=== PATIENT | male | born 1960 | race Caucasian/White ===

== ENCOUNTER 2025-01-18 09:44 | Day surgery (SDC) | payer OTHER ==
[2025-01-15 14:24] LABS: Absolute Basophils 0.1 K/uL (0-0.5); Absolute Eosinophils 0.9 K/uL (0-0.5); Absolute Lymphocytes (CBC) 1.8 K/uL (0.7-4.9); Absolute Monocytes 1.4 K/uL (0.1-1.3); Absolute Neutrophil 7.7 K/uL (1.8-8.0); Eosinophils % 7.3 % (0-4.4); Hematocrit 30.6 % (39.6-49.0); Hemoglobin 10.2 g/dL (13.6-17.9); MCH 26.1 pg (27.0-35.0); MCHC 33.5 g/dL (32.0-36.0); MCV 77.9 fL (80-100); Monocytes % 11.6 % (3.3-12.3); Neutrophils % 65.1 % (41.7-73.7); Platelets 312 thou/uL (152-406); RBC Red Blood Cell Count 3.92 M/uL (4.33-5.43); Red Cell Distribution Width 17.3 % (12.1-15.2)
[2025-01-15 14:40] LABS: Anion Gap 12.2 mEq/L (5.0-15.0); Potassium 3.2 mEq/L (3.5-5.1)
[2025-01-18] MEDS: NA CHLORIDE 0.9% 500 ML ONE (10:25)
[2025-01-18] MEDS ORDERED: NEOSTIGMINE 1 MG/ML -10 ML VIAL ONE (12:38)
[2025-01-18] MEDS ORDERED: ONDANSETRON 4 MG/2 ML VIAL ONE (12:38)
[2025-01-18] MEDS ORDERED: FENTANYL CITR 100 MCG/2 ML ONE (12:38)
[2025-01-18] MEDS ORDERED: GLYCOPYRROLATE 0.2 MG/ML SYR ONE (12:38)
[2025-01-18] MEDS ORDERED: LIDOCAINE 2% MPF 5 ML VIAL ONE (12:38)
[2025-01-18] MEDS ORDERED: propofoL 200 MG/20 ML VIAL IV ONE (12:38)
[2025-01-18] MEDS ORDERED: ROCURONIUM 50 MG/5 ML VIAL IV ONE (12:38)
[2025-01-18] MEDS ORDERED: MIDAZOLAM HCL 2 MG/2 ML INJ ONE (12:38)
[2025-01-18] MEDS: CEFAZOLIN SODIUM 2 GM/VIAL ONE (13:05)
[2025-01-18] MEDS: LIDOCAINE HCL/EPINEPHRINE 20 ML MDV ONE (13:34)
[2025-01-18] MEDS ORDERED: EPHEDRINE SULF 50 MG/ML VIAL ONE (13:37)
[2025-01-18] MEDS: HEPARIN 500 UNIT/5 ML SYR IV ONE (14:00)
--- NOTE | 2025-01-18 14:02 | P.OP ---
Preoperative diagnosis: Need for Dialysis Postoperative diagnosis: Need for Dialysis Primary procedure: Laparoscopic Placement of Peritoneal Dialysis Catheter Anesthesia: GETA + Local Estimated blood loss: <5cc Specimen: None Findings: Catheter in pelvis Complications: None Drain(s): Other ([place] Double Cuffed Peritoneal Dialysis Catheter) Implants: [place] Double Cuffed PD Catheter Transferred to: Recovery Room Condition: Good
--- NOTE | 2025-01-18 14:52 | EKG ---
Test Date: 2025-01-15 Test Time: 14:10:18 Keypunch Operator: SAVANAH MEASUREMENT RESULTS: Intervals: Rate: 66 WV: 216 QRSD: 98 QT: 462 QTc: 484 Gilbert: P: 36 WV: 216 QRS: 54 T: 68 INTERPRETIVE STATEMENTS: Sinus rhythm with 1st degree AV block ST abnormality, possible digitalis effect Prolonged QT Abnormal ECG No previous ECG available for comparison Electronically Signed On 01-18-25 14:43:57 CDT by Tao Reyes
[2025-01-18 15:05] VITALS: TEMP 97.3; O2SAT 95
[2025-01-18] MEDS ORDERED: HYDROCODONE/APAP 7.5/325 MG TAB ONE (15:07)
[2025-01-18] MEDS: HYDROCODONE/APAP 7.5/325 MG TAB PO ONE (15:15)
[2025-01-18 15:39] VITALS: BP 185/77
--- NOTE | 2025-01-19 00:16 | OP ---
Date of Procedure: 01/18/2025 Surgeon: Juanjo Ellison MD, Preoperative Diagnosis: Need for dialysis. Postoperative Diagnosis: Need for dialysis. Procedure Performed: Laparoscopic placement of peritoneal dialysis catheter. Anesthesia: General endotracheal plus local with 1% lidocaine with epinephrine. Estimated Blood Loss: Less than 5 cc. Specimens: None. Findings: Catheter and pelvis with medial tilt. Complications: None. Implants: [employer]it double cuffed peritoneal dialysis catheter. Disposition: The patient was transferred to recovery room in good condition. Procedure In Detail: After informed consent was obtained, the patient was brought to the operating r oom, prepped and draped in usual sterile fashion. After adequate anesthesia was achieved, I made a l eft upper quadrant incision down to subcutaneous tissues. A 5 mm 0-degree optical trocar was introdu abraham into the abdomen without incident or complication. Insufflation was obtained to 15 mmHg at this time. There was no injury to vital structures upon entry into the abdomen. I premarked the patient' s abdomen for the [employer]it double cuffed peritoneal dialysis catheter using the preset stencil for the s tandard outlet position. At this point, following the incision on the left side of the abdomen, I ma de an incision overlying the rectus muscle ultimately dissecting down using an introducer sheath aimi ng towards the space of Retzius into the pelvis with a 35-degree angle. I directed the catheter rose th towards the coccyx at this point. I performed sequential dilatation, then placed catheter with me dial tilt towards the patient's pelvis near the coccyx deep in the pelvis with the curl medially. At this point, I placed the initial cuff into the posterior space of the anterior rectus sheath. Ultim ately, I then placed a tunneling device after following the pre-stencil area. I placed this through the pre-stencil area and brought out through the left abdomen through a separate stab incision. At t his point, the catheter was brought and the cup was then placed in its normal anatomic position follo wing the cuff dixon sites. At this point, air was blown quite easily through and placed a cap in this area and then flushed the catheter. It was flushed quite easily. The patient remained in neutral p osition at this point, and the foot was able to come back without issue. At this point, all skin inc isions were then copiously irrigated. I desufflated the abdomen under direct vision. After desuffla tion of the abdomen was complete, I removed the trocar under direct vision. All skin edges were then copiously irrigated at this point, closed with interrupted 3-0 Vicryl in the deep dermal plane, and skin was closed with 4-0 Monocryl in a running fashion. Dermabond was placed over top. The patient tolerated the procedure well without incident or complication and transferred to PACU in good conditi on. All counts were correct at the end of the case. SHARA/JASS Voice ID: [id number] Report ID: [id number]
== END 2025-01-18 15:35 | disposition home or self-care (01) ==
LOC: OR 09:44
PROVIDERS: ATTEND Surgery
PROC: 0WHG43Z Insertion of Infusion Device into Peritoneal Cavity, Percutaneous Endoscopic Approach (ICD-10-PCS; principal; 2025-01-18 12:00)
DX: N18.6 End stage renal disease (principal)
CPT/HCPCS: 93005; 85025; 80048; 36415; 49324; J2704; J2710; J2003; J2250; J3010; J1642; J2405; J7040